=== PATIENT | male | born 1985 | race Caucasian/White ===

== ENCOUNTER 2022-06-01 12:22 | Emergency (ER) | payer BC ==
[2022-06-01] MEDS: Tetracaine HCl/PF 0.5% 4 ML Bottle EYERT ONE (12:55)
[2022-06-01] MEDS: Fluorescein 1 MG Ophth Strip EYERT ONE (12:55)
[2022-06-01] MEDS: Distilled Water Ophth Irrig Soln 120 ML Bottle EYERT ONE (12:55)
== END 2022-06-01 13:00 | disposition home or self-care (01) ==
LOC: CC.ED 12:22
DX: T15.01XA Foreign body in cornea, right eye, initial encounter (principal)
CPT/HCPCS: 65220; 99283